=== PATIENT | male | born 1990 | race Caucasian/White ===

== ENCOUNTER 2019-04-25 22:23 | Emergency (ER) | payer MEDICAID, OTHER ==
[~2019-04-25] VITALS: Ht 172.7 cm; Wt 123.7 kg
[2019-04-25 22:33] VITALS: Ht 172.7 cm; Wt 123.7 kg
[2019-04-25] MEDS ORDERED: SOD CHLORIDE 0.9% 1,000 ML IV STA (23:07)
[2019-04-25] MEDS ORDERED: ONDANSETRON 4 MG INJ IV ONE (23:30)
[2019-04-25] MEDS ORDERED: morphine 4 MG/ML VIAL IV ONE (23:30)
[2019-04-26] MEDS ORDERED: IOHEXOL 300MG/ML 150 ML BTL ONE (00:18)
[2019-04-26] MEDS ORDERED: SOD CHLORIDE 0.9% 100 ML ONE (00:18)
[2019-04-26] MEDS ORDERED: ACETAMINOPHEN 500 MG TAB PO STA (01:35)
[2019-04-26 02:26] VITALS: BP 118/76; PULSE 72; RESP 16
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
== END 2019-04-26 02:35 | disposition home or self-care (01) ==
LOC: E/R 22:23
DX: S30.1XXA Contusion of abdominal wall, initial encounter (principal); S00.83XA Contusion of other part of head, initial encounter; S20.219A Contusion of unspecified front wall of thorax, initial encounter; F17.210 Nicotine dependence, cigarettes, uncomplicated; R40.2142 Coma scale, eyes open, spontaneous, at arrival to emergency department; R40.2252 Coma scale, best verbal response, oriented, at arrival to emergency department; R40.2362 Coma scale, best motor response, obeys commands, at arrival to emergency department; Y04.2XXA Assault by strike against or bumped into by another person, initial encounter
CPT/HCPCS: 36415; 70450; 71260; 73030; 74177; 80053; 83690; 85025; 85610; 85730; 96374; 96375; J2270; J2405; J7030; Q9967; Z7502; Z7610